=== PATIENT | female | born 1940 | race Caucasian/White ===

== ENCOUNTER 2018-08-01 00:21 | Observation (INO) ==
--- NOTE | 2018-08-01 00:51 | ED ---
HPI General Chief Complaint: Chest Pain Stated Complaint: Chest pain Time Seen by Provider: 08/01/18 00:36 Source: patient Mode of arrival: ambulatory Limitations: no limitations History of Present Illness HPI narrative: The patient is a 78-year-old female with hypertension hypothyroidism presented with complaint of chest pain and elevated BP of 170/ 81. She was cleaning on Tuesday around her house and then yesterday while at rest she started experiencing left-sided chest pain radiating to her arm. She felt it was musculoskeletal so she rested however the pain has been persistent. Denies any shortness of breath. She took 4 baby aspirins prior to coming here tonight. STEMI Alert: No Onset (ago): day(s) (1) Duration: constant Onset: during rest Severity: moderate Severity scale (1-10): 7 Quality: aching Pain radiation: LUE and neck Relieving factors: nothing Exacerbating factors: nothing Treatments prior to arrival chest pain: aspirin (324mg) Related Data On Oral Contraceptives: No Home Medications Medication Instructions Recorded Confirmed amlodipine 5 mg PO DAILY 08/01/18 08/01/18 aspirin [Aspir-81] 81 mg PO DAILY 08/01/18 08/01/18 biotin 5 mg PO DAILY 08/01/18 08/01/18 conjugated estrogens [Premarin] 1 applic VAGINAL BID 08/01/18 08/01/18 levothyroxine [Synthroid] 112 mcg PO DAILY 08/01/18 08/01/18 pqgqaxnw-ghx-UZ-lycopen-lutein 1 tab PO DAILY 08/01/18 08/01/18 [Centrum Silver] Allergies Allergy/AdvReac Type Severity Reaction Status Date / Time No Known Allergies Allergy Unverified 08/01/18 00:30 Review of Systems ROS: all other systems reviewed are negative PMFSH History History Provided By: Patient Medical History Medical History History of hysterectomy (Acute) Hypertension (Acute) Hypothyroid (Acute) Surgical History Surgical History History of appendectomy (Acute) History of back surgery (Acute) History of tonsillectomy (Acute) Social History Social History Substance History: No History of Abuse Second Hand Smoke Exposure: No Smoking Status: Never smoker Tobacco Type: Cigarettes How Often Do You Have a Drink Containing Alcohol: Never Recent Travel in [facility] within the Last 8 Weeks: No Recent Out of Country Travel within the Last 8 Weeks: No Exam Narrative Exam Narrative: GENERAL: Alert and oriented in no distress SKIN: Focused skin assessment warm/dry. HEAD: Atraumatic. Normocephalic. EYES: Pupils equal and round. No scleral icterus. No injection or drainage. ENT: No nasal bleeding or discharge. Mucous membranes pink and moist. NECK: Trachea midline. No JVD. CARDIOVASCULAR: Regular rate and rhythm. No murmur appreciated. RESPIRATORY: No accessory muscle use. Clear to auscultation. Breath sounds equal bilaterally. GASTROINTESTINAL: Abdomen soft, non-tender, nondistended. Hepatic and splenic margins not palpable. MUSCULOSKELETAL: No obvious deformities. No clubbing. No cyanosis. No edema. NEUROLOGICAL: Awake and alert. No obvious cranial nerve deficits. Motor grossly within normal limits. Normal speech. PSYCHIATRIC: Appropriate mood and affect; insight and judgment normal. Course Initial Documented Vital Signs Temperature 97.7 F 08/01/18 00:30 Pulse Rate 62 08/01/18 00:30 Respiratory Rate 15 08/01/18 00:30 Blood Pressure 170/81 H 08/01/18 00:30 Pulse Oximetry 97 08/01/18 00:30 Last Documented Vital Signs Temperature 97.7 F 08/01/18 00:30 Pulse Rate 59 L 08/01/18 00:40 Respiratory Rate 16 08/01/18 00:40 Blood Pressure 170/81 H 08/01/18 00:40 Pulse Oximetry 99 08/01/18 00:50 Medical Decision Making MDM Narrative Medical decision making narrative: Negative initial workup for acute ischemia. The patient did improve with sublingual nitro. EKG and troponin not suggestive of acute ischemia at this time. Will admit to chest pain unit for observation and serial cardiac enzymes. Medical Screen Exam Complete: Yes Emergency Medical Condition: Yes Medical Records Medical records reviewed: Yes I reviewed the patient's medical records. Lab Data Lab results reviewed: Yes I reviewed the patient's lab results. Result diagrams: 08/01/18 00:55 08/01/18 00:55 Lab Results 09/25/18 09/25/18 09/25/18 Range/Units 00:55 00:55 00:55 WBC 7.7 (4.0-11.0) th/mm3 RBC 4.15 (4.00-5.30) mil/mm3 Hgb 12.6 (11.6-15.3) gm/dL Hct 37.5 (35.0-46.0) % MCV 90.3 (80.0-100.0) fL MCH 30.4 (27.0-34.0) pg MCHC 33.7 (32.0-36.0) % RDW 13.2 (11.6-17.2) % Plt Count 159 (150-450) th/mm3 MPV 9.3 (7.0-11.0) fL Neut % (Auto) 62.0 (16.0-70.0) % Lymph % (Auto) 25.7 (9.0-44.0) % [place] % (Auto) 7.3 (0.0-8.0) % Eos % (Auto) 4.3 H (0.0-4.0) % Baso % (Auto) 0.7 (0.0-2.0) % Neut # (Auto) 4.8 (1.8-7.7) th/mm3 Lymph # (Auto) 2.0 (1.0-4.8) th/mm3 [place] # (Auto) 0.6 (0.0-0.9) th/mm3 Eos # (Auto) 0.3 (0.0-0.4) th/mm3 Baso # (Auto) 0.1 (0.0-0.2) th/mm3 WBC Differential . Differential Comment Auto diff final PT 10.1 (9.8-11.6) sec INR 1.0 Ratio APTT 27.6 (24.3-30.1) sec Sodium 142 (136-145) meq/L Potassium 3.8 (3.5-5.1) meq/L Chloride 104 (98-107) meq/L Carbon Dioxide 27.3 (21.0-32.0) meq/L Anion Gap 11 (5-15) meq/L BUN 23 H (7-18) mg/dL Creatinine 1.00 (0.50-1.00) mg/dL Estimated GFR 54 L (>89) mL/min Random Glucose 93 (74-106) mg/dL Calcium 9.3 (8.5-10.1) mg/dL Total Bilirubin 0.3 (0.2-1.0) mg/dL AST 25 (15-37) U/L ALT 27 (10-53) U/L Alkaline Phosphatase 89 (45-117) U/L Total Creatine Kinase 129 (26-192) U/L CK-MB (CK-2) 5.6 H (0.5-3.6) ng/mL Troponin I Less than 0.02 L (0.02-0.05) ng/mL Total Protein 7.7 (6.4-8.2) g/dL Albumin 3.7 (3.4-5.0) g/dL Imaging Data Radiologist's impression: Chest X-Ray 08/01/18 00:50 CONCLUSION: No acute cardiopulmonary disease identified. ECG Data EKG Prior to Arrival: No Attestation: I personally reviewed and interpreted this ECG as follows: Interpretation: Normal sinus rhythm at 60 bpm with a AL interval 199 and the QTC of 408. Nonspecific ST-T wave abnormalities no signs of acute ischemia normal axis. Discharge Plan Discharge Disposition Patient Disposition: 30 Still Patient Discharge Condition Condition: Good Discharge Details Diagnosis: Atypical chest pain Physicians Team ED Provider: Dami Maldonado Primary Care Provider: Pb Rausch Attending Provider: Abrahan Jean Baptiste Discharge Interventions Interventions: Vital Signs Last Done: 08/01/18 00:40 Status ED Status: Admitted Observation Patient
[2018-08-01 01:10] LABS: Baso # (Auto) 0.1 th/mm3 (0.0-0.2); Baso % (Auto) 0.7 % (0.0-2.0); Eos # (Auto) 0.3 th/mm3 (0.0-0.4); Eos % (Auto) 4.3 % (0.0-4.0); Hematocrit 37.5 % (35.0-46.0); Hemoglobin 12.6 gm/dL (11.6-15.3); Lymph % (Auto) 25.7 % (9.0-44.0); Mean Corpuscular HGB Conc 33.7 % (32.0-36.0); Mean Corpuscular Hemoglobin 30.4 pg (27.0-34.0); Mean Corpuscular Volume 90.3 fL (80.0-100.0); Mean Platelet Volume 9.3 fL (7.0-11.0); Mono # (Auto) 0.6 th/mm3 (0.0-0.9); Mono % (Auto) 7.3 % (0.0-8.0); Neut # (Auto) 4.8 th/mm3 (1.8-7.7); Platelet Count 159 th/mm3 (150-450); Red Blood Count 4.15 mil/mm3 (4.00-5.30); Red Cell Distribution Width 13.2 % (11.6-17.2); White Blood Count 7.7 th/mm3 (4.0-11.0)
[2018-08-01 01:21] LABS: Activated Partial Thrombo Time 27.6 sec (24.3-30.1); Prothrombin Time 10.1 sec (9.8-11.6)
[2018-08-01 01:27] LABS: Alanine Aminotransferase 27 U/L (10-53); Albumin 3.7 g/dL (3.4-5.0); Anion Gap 11 meq/L (5-15); Aspartate Aminotransferase 25 U/L (15-37); Blood Urea Nitrogen 23 mg/dL (7-18); Calcium 9.3 mg/dL (8.5-10.1); Carbon Dioxide 27.3 meq/L (21.0-32.0); Chloride 104 meq/L (98-107); Glomerular Filtration Rate 54 mL/min (>89); Glucose,Random 93 mg/dL (74-106); Potassium 3.8 meq/L (3.5-5.1); Sodium 142 meq/L (136-145)
[2018-08-01 01:31] LABS: Alkaline Phosphatase 89 U/L (45-117); Creatine Kinase 129 U/L (26-192); Total Protein 7.7 g/dL (6.4-8.2)
[2018-08-01 01:44] LABS: Creatine Kinase MB 5.6 ng/mL (0.5-3.6)
--- NOTE | 2018-08-01 01:46 | XR ---
EXAM DATE: 08/01/2018 1:24 AM EDT AGE/SEX: 78 years / Female INDICATIONS: Chest pain. CLINICAL DATA: This is the patient's initial encounter. Patient reports that signs and symptoms have been present for 1 day and indicates a pain score of 6/10. MEDICAL/SURGICAL HISTORY: Hypertension. None. COMPARISON: POI, XR CHEST PA AND LAT, 10/06/2017. . FINDINGS: Single AP view of the chest. Lung volumes are low. The lungs are clear. Cardiomediastinal silhouette within normal limits. No evidence of pleural effusion or pneumothorax. CONCLUSION: No acute cardiopulmonary disease identified. Electronically signed by: David Castillo MD 08/01/2018 1:45 AM EDT
[2018-08-01 03:47] LABS: Creatine Kinase 114 U/L (26-192)
--- NOTE | 2018-08-01 08:28 | ECG ---
Date Performed: 08/01/2018 Time Performed: 03:31:54 PTAGE: 78 years EKG: SINUS BRADYCARDIA BORDERLINE ECG Since PREVIOUS TRACING , no significant change noted DOCTOR: Elisa Dahl Interpretating Date/Time 08/01/2018 08:27:02
--- NOTE | 2018-08-01 08:29 | ECG ---
Date Performed: 08/01/2018 Time Performed: 00:42:44 PTAGE: 78 years EKG: Sinus rhythm NORMAL ECG Since PREVIOUS TRACING , no significant change noted PREVIOUS TRACIN02/08/2016 15.17 DOCTOR: Elisa Dahl Interpretating Date/Time 08/01/2018 08:27:50
[2018-08-01 08:35] LABS: Creatine Kinase 107 U/L (26-192)
[2018-08-01] MEDS ORDERED: amLODIPine 5 MG Tablet PO SCH (09:00)
[2018-08-01] MEDS ORDERED: Levothyroxine 112 MCG Tablet PO SCH (09:00)
--- NOTE | 2018-08-01 09:21 | P.HPCA ---
History of Present Illness Primary Care Physician: Pb Rausch MD Chief Complaint: Chest pain History of Present Illness: This is a 78-year-old female with history of hypertension that presents to ED to be evaluated for chest discomfort that was constant for about a day and a half. She describes as a sharp discomfort. Is left-sided radiating to her left arm. Found nothing to worsen or improve it when it was present. Currently denies the discomfort. Denies shortness of breath, nausea, or diaphoresis. Denies abdominal pain. Patient was seen in the ED June 20 diagnosed with cholelithiasis but no acute cholecystitis and was referred to Dr. Crane whom she states she followed and stated that it was not an urgent issue and he will continue to follow as needed. Patient states that she has had a cardiac evaluation in the past. Upon reviewing records she had a nonischemic Pawan protocol ETT February 08, 2016 at this facility. History of hypertension and hypothyroidism. Recently diagnosed with cholelithiasis without acute cholecystitis. Denies hyperlipidemia, diabetes, and CAD. Her father had CAD with MIs in his 60s and stents. Had CABG. Lived to be . Patient is a non-smoker. - Diagnosis (1) Chest pain (2) Hypertension (3) Hypothyroidism Review of Systems General: Patient denies fevers, chills, and recent travel. HEENT: Patient denies headache, sore throat, difficulty swallowing. Cardiovascular: Has the chest discomfort as mentioned above. Denies sensation of heart beating rapidly or irregularly. No syncope. Denies diaphoresis. Respiratory: Denies shortness of breath or inspirational chest discomfort. Denies coughing wheezing or hemoptysis. GI: Patient denies nausea, vomiting, diarrhea, abdominal pain, bloody stools. Musculoskeletal: Patient denies joint pain or edema. Denies calf pain or edema. Neurovascular: Patient denies numbness, tingling, weakness in extremities. Denies headache. Endocrine: Denies polyuria and polydipsia. Hematologic: Denies easy bruising. Skin: Denies rash or itching. PMFSH - History History Provided By: Patient - Medical History Medical History: Medical History (Last Reviewed 08/01/18 @ 00:52 by Dami aMldonado DO) History of hysterectomy Hypertension Hypothyroid - Surgical History Surgical History: Surgical History (Last Reviewed 09/25/18 @ 00:52 by Dami Maldonado DO) History of appendectomy History of back surgery History of tonsillectomy - Tobacco History Second Hand Smoke Exposure: No Smoking Status: Never smoker Tobacco Type: Cigarettes - Alcohol History How Often Do You Have a Drink Containing Alcohol: Never - Substance Use History Substance History: No History of Abuse - Travel History Recent Travel in the [place] Within the Last 8 Weeks: No Recent Travel Out of the Country Within the Last 8 Weeks: No - Immunization History Tetanus Immunization: Unsure Hx Influenza Vaccine This Season: Yes Medications and Allergies Active Medications: Active Medications Amlodipine Besylate (Norvasc) 5 mg PO DAILY ROWDY Aspirin (Ecotrin) 81 mg PO DAILY ROWDY Levothyroxine Sodium (Synthroid) 112 mcg PO DAILY@0600 ROWDY Sodium Chloride (Ns Flush) 2 ml IV.FLUSH UNSCH PRN PRN Reason: FLUSH AFTER USING IV ACCESS Sodium Chloride (Ns Flush) 2 ml IV.FLUSH BID ROWDY Sodium Chloride (Ns Flush) 2 ml IV.FLUSH PRN PRN PRN Reason: FLUSH AFTER USING IV ACCESS Allergies Allergy/AdvReac Type Severity Reaction Status Date / Time No Known Allergies Allergy Unverified 08/01/18 00:30 Home Medications Medication Instructions Recorded Confirmed Type amlodipine 5 mg PO DAILY 08/01/18 08/01/18 History aspirin [Aspir-81] 81 mg PO DAILY 08/01/18 08/01/18 History biotin 5 mg PO DAILY 08/01/18 08/01/18 History conjugated estrogens [Premarin] 1 applic VAGINAL BID 08/01/18 08/01/18 History levothyroxine [Synthroid] 112 mcg PO DAILY 08/01/18 08/01/18 History dftiykxj-ywx-PS-lycopen-lutein 1 tab PO DAILY 08/01/18 08/01/18 History [Centrum Silver] Exam Vital signs: Vital Signs 08/01/18 00:30 08/01/18 00:40 08/01/18 00:50 Temperature 97.7 F Pulse Rate 62 59 L 60 Respiratory Rate 15 16 Blood Pressure 170/81 H 170/81 H Pulse Oximetry 97 99 99 08/01/18 01:43 08/01/18 04:14 08/01/18 06:32 Temperature 97.7 F Pulse Rate 59 L Respiratory Rate 18 16 Blood Pressure 141/71 H 142/65 H Pulse Oximetry 98 99 08/01/18 07:21 Temperature 97.7 F Pulse Rate 58 L Respiratory Rate 16 Blood Pressure 146/68 H Pulse Oximetry 94 L Intake & Output 07/31/18 08/01/18 08/01/18 18:59 06:59 18:59 Weight 66.678 kg Narrative: GENERAL: This is a well-nourished, well-developed patient, in no apparent distress. Patient speaks in clear complete sentences. Patient is pleasant. HEENT: Head is atraumatic and normocephalic. Neck is supple without lymphadenopathy and trachea is midline. No JVD or carotid bruits. CARDIOVASCULAR: Regular rate and rhythm without murmurs, gallops, or rubs. RESPIRATORY: Clear to auscultation. Breath sounds equal bilaterally. No wheezes , rales, or rhonchi. Chest wall is nontender. No use of accessory muscles. GASTROINTESTINAL: Abdomen is nontender, nondistended. Abdomen soft. No obvious pulsatile mass or bruit. No CVA tenderness. Strong femoral pulses bilaterally. Normal bowel sounds in all quadrants. MUSCULOSKELETAL: Patient is moving upper and lower extremities freely. No calf tenderness or edema, no Homans sign. Strong pulses in upper and lower extremities. NEUROLOGICAL: Patient is alert and oriented. Cranial nerves 2-12 are grossly intact. No focal deficits and speech is clear. SKIN: No rash and turgor is normal. Results 08/01/18 00:55 08/01/18 00:55 Cardiac Enzymes 08/01/18 08/01/18 08/01/18 Range/Units 00:55 02:53 07:55 AST 25 (15-37) U/L CK-MB (CK-2) 5.6 H (0.5-3.6) ng/mL Troponin I Less than 0.02 L Less than 0.02 L Less than 0.02 L (0.02-0.05) ng/mL Coagulation 08/01/18 Range/Units 00:55 PT 10.1 (9.8-11.6) sec APTT 27.6 (24.3-30.1) sec CBC 08/01/18 Range/Units 00:55 WBC 7.7 (4.0-11.0) th/mm3 RBC 4.15 (4.00-5.30) mil/mm3 Hgb 12.6 (11.6-15.3) gm/dL Hct 37.5 (35.0-46.0) % Plt Count 159 (150-450) th/mm3 Neut # (Auto) 4.8 (1.8-7.7) th/mm3 Lymph # (Auto) 2.0 (1.0-4.8) th/mm3 [place] # (Auto) 0.6 (0.0-0.9) th/mm3 Eos # (Auto) 0.3 (0.0-0.4) th/mm3 Baso # (Auto) 0.1 (0.0-0.2) th/mm3 Comprehensive Metabolic Panel 08/01/18 Range/Units 00:55 Sodium 142 (136-145) meq/L Potassium 3.8 (3.5-5.1) meq/L Chloride 104 (98-107) meq/L Carbon Dioxide 27.3 (21.0-32.0) meq/L BUN 23 H (7-18) mg/dL Creatinine 1.00 (0.50-1.00) mg/dL Calcium 9.3 (8.5-10.1) mg/dL AST 25 (15-37) U/L ALT 27 (10-53) U/L Alkaline Phosphatase 89 (45-117) U/L Total Protein 7.7 (6.4-8.2) g/dL Albumin 3.7 (3.4-5.0) g/dL Intake and Output 07/31/18 08/01/18 08/01/18 22:59 06:59 14:59 Other: Weight 66.678 kg - Imaging and Cardiology Imaging: Impressions Chest X-Ray 08/01/18 00:50 CONCLUSION: No acute cardiopulmonary disease identified. EKG interpretations - EKG EKG shows: sinus rhythm (EKGs are sinus rhythm without significant ST segment depressions or elevations.) Caprini VTE Risk Assessment Caprini VTE Risk Assessment: Moderate/High Risk (score >= 2) Caprini Risk Assessment Model: Point Value = 1 Point Value = 2 Point Value = 3 Point Value = 5 Age 41-60 Minor surgery BMI > 25 kg/m2 Swollen legs Varicose veins or History of unexplained or recurrent spontaneous Oral contraceptives or hormone replacement Sepsis (< 1 month) Serious lung disease, including pneumonia (< 1 month) Abnormal pulmonary function Acute myocardial infarction Congestive heart failure (< 1 month) History of inflammatory bowel disease Medical patient at bed rest Age 61-74 Arthroscopic surgery Major open surgery (> 45 min) Laparoscopic surgery (> 45 min) Malignancy Confined to bed (> 72 hours) Immobilizing plaster cast Central venous access Age >= 75 History of VTE Family history of VTE Factor V Leiden Prothrombin [id number] Lupus anticoagulant Anticardiolipin antibodies Elevated serum homocysteine Heparin-induced thrombocytopenia Other congenital or acquired thrombophilia Stroke (< 1 month) Elective arthroplasty Hip, pelvis, or leg fracture Acute spinal cord injury (< 1 month) Prophylaxis Regimen: Total Risk Factor Score Risk Level Prophylaxis Regimen 0-1 Low Early ambulation 2 Moderate Order ONE of the following: *Sequential Compression Device (SCD) *Heparin 5000 units SQ BID 3-4 Higher Order ONE of the following medications: *Heparin 5000 units SQ TID *Enoxaparin/Lovenox 40 mg SQ daily (WT < 150 kg, CrCl > 30 mL/min) *Enoxaparin/Lovenox 30 mg SQ daily (WT < 150 kg, CrCl > 10-29 mL/min) *Enoxaparin/Lovenox 30 mg SQ BID (WT < 150 kg, CrCl > 30 mL/min) AND/OR *Sequential Compression Device (SCD) 5 or more Highest Order ONE of the following medications: *Heparin 5000 units SQ TID (Preferred with Epidurals) *Enoxaparin/Lovenox 40 mg SQ daily (WT < 150 kg, CrCl > 30 mL/min) *Enoxaparin/Lovenox 30 mg SQ daily (WT < 150 kg, CrCl > 10-29 mL/min) *Enoxaparin/Lovenox 30 mg SQ BID (WT < 150 kg, CrCl > 30 mL/min) AND *Sequential Compression Device (SCD) Assessment and Plan - Assessment (1) Chest pain Code(s): R07.9 - Chest pain, unspecified Status: Acute (2) Hypertension Code(s): I10 - Essential (primary) hypertension Status: Acute (3) Hypothyroidism Code(s): E03.9 - Hypothyroidism, unspecified Status: Acute - Plan * Chest pain: Patient has had serial cardiac enzymes and EKGs for ruling out purposes. She was seen by Dr. Dahl of cardiology in the chest pain center. Plan initially was to perform ETT however patient states that her knee has been more bothersome after following about a month and half ago. Subsequent Lexiscan has been ordered. Patient be discharged home if her stress test is nonischemic with instructions to follow-up with PCP and return to ED for interval issues. * Hypertension: Continue medication. * Hypothyroidism: Continue medication. Patient is stable at this time. She is agreeable to this plan. H&P: Quality - VTE Deep Vein Thrombosis/Pulmonary Embolism Present on Admission: No
[2018-08-01] MEDS ORDERED: Regadenoson Inj 0.4 MG/5 ML Syringe IV.PUSH ONE (09:56)
--- NOTE | 2018-08-01 10:59 | NM ---
EXAM DATE: 08/01/2018 9:20 AM EDT AGE/SEX: 78 years / Female INDICATIONS:Angina. . Left chest pain radiating to the left arm. CLINICAL DATA: This is the patient's initial encounter. Patient reports that signs and symptoms have been present for 1 day and indicates a pain score of 6/10. MEDICAL/SURGICAL HISTORY: Hypertension. Hysterectomy. Appendectomy. Tonsillectomy. COMPARISON: . DOSE: 8.3 mCi Tc 99m Myoview at rest 27.3 mCi [id number] at stress 0.4 mg Lexiscan STRESS SYMPTOMS: Stomach cramps. EJECTION FRACTION: >70 % TECHNIQUE: The patient underwent pharmacologic stress with infusion of prescribed dose. Continuous ECG tracing was monitored during stress. Gated SPECT imaging was performed after stress and conventi onal SPECT imaging was performed at rest. The examination was performed on a SPECT/CT scanner, both attenuation and non-corrected datasets were reviewed. FINDINGS: Distribution: The maximum perfused segment at stress is in the septal wall. Perfusion Study: The pattern of perfusion at stress is within normal limits. Gated Study: There are intact wall motion and wall thickening without hypokinetic or dyskinetic segm ents. The ejection fraction is calculated at >70%. RISK CATEGORY: Low (<1% Annual Motality Rate) CONCLUSION: 1. No reversible perfusion defect to indicate stress-induced myocardial ischemia identified. Electronically signed by: Az Uribe MD 08/01/2018 10:58 AM EDT
[2018-08-01 11:25] VITALS: BP 128/60; RESP 12; TEMP 97.8; O2SAT 95
[2018-08-01 14:04] VITALS: PULSE 61
--- NOTE | 2018-08-01 17:06 | TR ---
Date Performed: 08/01/2018 Time Performed: 09:40:57 DOCTOR: Elisa Dahl DRUG LIST: CLINICAL HISTORY: REASON FOR TEST: REASON FOR ENDING: OBSERVATION: CONCLUSION: Lexiscan stress test was performed under standard four minute protocol. Radionucl[place] e was injected one minute prior to ending the test. No electrocardiographic abormalities were present to suggest ischemia. Nuclear imaging and interpretation are pending. COMMENTS: no ischemia
== END 2018-08-01 14:21 | disposition home or self-care (01) ==
LOC: NEPC 00:21 → NEDA 00:21 → NEPHCDU 06:29
PROVIDERS: ADMIT Internal Medicine Cardiovascular Disease; ATTEND Internal Medicine Cardiovascular Disease